=== PATIENT | female | born 1955 | race Caucasian/White ===

== ENCOUNTER 2020-01-06 10:23 | Outpatient (CLI) | payer BC, SELFPAY ==
--- NOTE | ~2020-01-06 | MM_ITS ---
EXAMINATION: MM screening sheryl BI w anuradha HISTORY: Screening TECHNIQUE: Craniocaudal and mediolateral oblique 3-D tomosynthesis images were obtained and synthetic 2-D images were generated. CAD analysis was submitted and interpreted. COMPARISON: Comparison to multiple prior studies sequentially, with oldest reviewed study dated 10/30. BREAST PARENCHYMAL COMPOSITION: There are scattered areas of fibroglandular density. FINDINGS: There are benign-appearing bilateral breast calcifications, some of which appear to layer o n the MLO view. There is no evidence of suspicious mass, calcification, or architectural distortion t o suggest malignancy in either breast. There has been no suspicious interval change. IMPRESSION: 1. No mammographic evidence of malignancy. 2. Recommend routine screening mammography in one year. BI-RADS Category 2: Benign finding(s). Reviewed, dictated and finalized at location A.
== END 2020-01-06 10:24 | disposition home or self-care (01) ==
LOC: ANHIMG 10:27
PROVIDERS: PCP Family Medicine; Visit Provider Physician Assistant
DX: Z12.31 Encounter for screening mammogram for malignant neoplasm of breast (principal)
CPT/HCPCS: 77063; 77067

== ENCOUNTER 2020-02-06 11:40 | Emergency (ER) | payer BC, SELFPAY ==
[2020-02-06 11:49] VITALS: BP 167/83; PULSE 68; RESP 20; TEMP 36.4; O2SAT 99
--- NOTE | 2020-02-06 11:49 | ED.UPPEXIN ---
HPI - Extremity Injury (Upper) General Chief Complaint: Extremity Problem,Nontraumatic Stated Complaint: R/shoulder pain Time Seen by Provider: 02/06/20 11:49 Source: patient and RN notes reviewed History of Present Illness HPI narrative: Patient is a 64-year-old female who presents the urgent care with complaints of a right shoulder pain. Patient is right-hand dominant. States that she was shoveling dirt approximately 1 hour ago and noticed a pop to the right shoulder. Patient states that after she went inside she felt a second pop which decreased her pain. However patient is reporting of right anterior shoulder burning with some tingling down the arm. Patient states that it is exacerbated with movement. Patient has not taken anything for pain prior to arrival. No other acute complaints or injuries. No acute distress noted. Patient aware of the plan of care. Related Data Allergies Allergy/AdvReac Type Severity Reaction Status Date / Time aspirin Allergy Unknown Skin Verified 01/02/20 14:48 Reaction neomycin Allergy Unknown Skin Verified 01/02/20 14:48 Reaction Sulfa (Sulfonamide Allergy Unknown Skin Verified 01/02/20 14:48 Antibiotics) Reaction sulfamethizole Allergy Unknown Skin Verified 01/02/20 14:48 Reaction valacyclovir Allergy Unknown pruiritis Verified 01/02/20 14:48 Review of Systems Review of Systems: Narrative: CONSTITUTIONAL: Denies fever, chills, or sweats. EYES: Denies visual changes, redness, or discharge. ENT: Denies rhinorrhea, congestion, sore throat, or otalgia. CARDIOVASCULAR: Denies chest pain, palpitations, or edema. RESPIRATORY: Denies cough or dyspnea. GASTROINTESTINAL: Denies abdominal pain, nausea, vomiting, or diarrhea. GENITOURINARY: Denies dysuria or hematuria. SKIN: Denies rash or itching. MUSCULOSKELETAL: Reports of right shoulder pain NEUROLOGIC: Denies headache, numbness, or weakness. All other systems reviewed are negative, except as documented in HPI. [facility], [facility] Social History Social History (Reviewed 01/02/20 @ 14:48 by Inna Ellison [facility] [address]) Smoking status: Never smoker Alcohol intake: current Gender identity (if verbalized by the patient): Female Comments At the time of my signature, I reviewed and agree with the nursing past medical, surgical, social, and family history. There is no relevant family history pertinent to the patient complaint. Exam Narrative: Exam Narrative: GENERAL: This is a well-nourished, well-developed patient, in no apparent distress. HEAD: normocephalic, atraumatic. EYES: PERRL. Sclera clear/white. Vision is grossly intact. EARS: External ears normal NOSE: External nose normal with no obvious nasal discharge, nares without redness, no rhinorrhea. THROAT: Mucous membranes moist SKIN: warm, intact with no suspicious lesions or rash, good texture and turgor. NEURO: awake, alert, and oriented to person, place and time. There were no obvious focal neurologic abnormalities. EXTREMITIES: No obvious dislocation, ecchymosis, edema or injury to the right shoulder. Mild anterior joint space tenderness to the right shoulder. No step-off or crepitus to the right clavicle. No posterior shoulder tenderness. Range of motion to right upper extremity within normal limits with positive strong right radial pulse and capillary refill less than 2 seconds. Course Vital Signs Vital signs: Vital Signs Temperature 97.6 F 02/06/20 11:49 Pulse Rate 68 02/06/20 11:49 Respiratory Rate 02/06/20 11:49 Blood Pressure 167/83 H 02/06/20 11:49 Pulse Oximetry 99 02/06/20 11:49 Temperature 97.6 F 02/06/20 11:49 Pulse Rate 68 02/06/20 11:49 Respiratory Rate 02/06/20 11:49 Blood Pressure 167/83 H 02/06/20 11:49 Pulse Oximetry 99 02/06/20 11:49 Reviewed-patient is informed that they may have pre-hypertension or hypertension based on a blood pressure reading in the department. I [facility] the [facility]
== END 2020-02-06 12:10 | disposition home or self-care (01) ==
PROVIDERS: Emergency Provider Nurse Practitioner Family; PCP Family Medicine
DX: S46.911A Strain of unspecified muscle, fascia and tendon at shoulder and upper arm level, right arm, initial encounter (principal); X50.3XXA Overexertion from repetitive movements, initial encounter; E78.00 Pure hypercholesterolemia, unspecified; I10 Essential (primary) hypertension
CPT/HCPCS: 99213; G0463

== ENCOUNTER → 2021-05-18 08:49 | Outpatient (CLI) | payer BC, SELFPAY ==
--- NOTE | ~2021-05-18 | XR_ITS ---
EXAMINATION: XR ankle RT min 3V DATE: 05/18/2021 09:03 INDICATION: Right ankle pain. TECHNIQUE: 4 views of right ankle were obtained. COMPARISON: None. FINDINGS: Bone alignment is normal. No fracture. There is an osteochondral lesion of medial talar dom e. There is mild midfoot osteoarthritis. There is heterotopic ossification distal to medial malleolus . There are enthesophytes at the posterior and plantar aspects of calcaneal tuberosity. There is ankl e soft tissue swelling. IMPRESSION: 1. 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 Reviewed, dictated and finalized at location A. 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 Polyarticular osteoarthritis including an osteochondral lesion of medial edward ar dome.
== END ==
PROVIDERS: PCP Family Medicine; Visit Provider Physician Assistant
DX: M19.071 Primary osteoarthritis, right ankle and foot (principal); M79.89 Other specified soft tissue disorders; M77.51 Other enthesopathy of right foot and ankle
CPT/HCPCS: 73610

== ENCOUNTER 2021-07-02 12:05 | Emergency (ER) | payer BC, SELFPAY ==
--- NOTE | ~2021-07-02 | US_ITS ---
EXAMINATION: US abdomen limited DATE: 07/02/2021 15:56 INDICATION: Right upper quadrant abdominal pain. TECHNIQUE: Multiple grayscale and Doppler ultrasound images of the abdomen were obtained. COMPARISON: CT abdomen and pelvis 07/02/2021 FINDINGS: The visualized portions of the head and body of the pancreas are normal. There is diffuse h epatic steatosis. No liver surface nodularity. The gallbladder is normal in size. No gallstones or ga llbladder wall thickening. There was no sonographic Petersen sign. The common duct is normal and measur es 4 mm. IMPRESSION: 1. Diffuse hepatic steatosis. Reviewed, dictated and finalized at location A. SCAPE ARCHITECTURE PROFESSOR
--- NOTE | ~2021-07-02 | CT_ITS ---
EXAMINATION: CT abdomen pelvis w con EXAM DATE: 07/02/2021 15:17 INDICATION: RUQ abd pain . Back pain. Symptoms 2 days. TECHNIQUE: Spiral CT of the abdomen and pelvis was performed following intravenous injection of 100 m L Omnipaque 350. Axial, coronal and sagittal images of the abdomen and pelvis were reviewed. The do se-length product (DLP) for this examination was 939.41 mGy-cm. The exposure was tailored according to patient size (auto mA exposure control), and iterative reconstruction (ASIR) was used as additiona l dose reduction technique. Comparison is made to prior examination from 08/03/2012. FINDINGS: The liver, spleen, adrenal glands and pancreas are unremarkable. Gallbladder is unremarkab le. No biliary obstruction. Portal and splenic veins are patent. Kidneys enhance symmetrically. T here is no hydronephrosis. The uterus is unremarkable. The bladder is unremarkable. There is no retroperitoneal or pelvic lymphadenopathy. There is mild scattered arteriosclerotic disease. There are no findings to suggest appendicitis. The stomach and small bowel are unremarkable. There is expected amount of colonic stool. There is mild scattered colonic diverticulosis. There is no adj acent inflammatory change to suggest diverticulitis. No free intraperitoneal gas. The heart is nor mal in size. There are no pericardial or pleural effusions. The lung bases are unremarkable. The b ones are unremarkable. IMPRESSION: 1. No acute intra-abdominal findings. 2. Mild scattered colonic diverticulosis. Reviewed, dictated and finalized at location A. LAND FIRE OPERATIONS SPECIALIST
[2021-07-02 12:08] VITALS: BP 138/94; PULSE 79; RESP 18; TEMP 36.5; O2SAT 98
[2021-07-02 14:40] LABS: Basophils Absolute Auto 0.1 K/mm3 (0.0-0.1); Basophils Percent Auto 1.2 % (0.2-1.2); Eosinophils Absolute Auto 0.4 K/mm3 (0-0.3); Eosinophils Percent Auto 4.7 % (0-4.4); Hematocrit 44.5 % (37.0-47.0); Hemoglobin 15.1 g/dL (12.0-15.0); Immature Granulocyte Absolute 0.04 K/mm3 (0.00-0.031); Immature Granulocyte Percent A 0.5 % (0-0.5); Lymphocytes Absolute Auto 2.67 K/mm3 (0.9-3.2); Lymphocytes Percent Auto 31.6 % (18.3-44.2); Mean Corpuscular HGB Conc 33.9 g/dl (32-36); Mean Corpuscular Hemoglobin 30.7 pg (26-34); Mean Corpuscular Volume 90.4 fl (80-100); Mean Platelet Volume 9.4 fl (7.4-10.4); Monocytes Absolute Auto 0.5 K/mm3 (0.1-0.6); Neutrophils Absolute Auto 4.7 K/mm3 (1.3-6.7); Platelet Count Result 331 k/mm3 (150-375); Red Blood Count 4.92 M/mm3 (4.2-5.4); Red Cell Distribution Width 13.4 % (11.5-14.5); White Blood Count 8.5 K/mm3 (4.5-10.0)
[2021-07-02 14:41] LABS: Add Urine Microscopic? NO; Appearance Urine Clear (Clear); Bilirubin Urine Negative (Negative); Blood Urine Negative (Negative); Color Urine Straw (Yellow); Glucose Urine UA Negative (Negative); Ketones Urine Negative (Negative); Leukocyte Esterase Ur Negative LEU/UL (Negative); Nitrate Urine Negative (Negative); Protein Urine Negative (Negative); Specific Grav Ur 1.012 (1.001-1.035); Urobilinogen Urine Negative mg/dL (<2.0)
[2021-07-02 14:54] LABS: Alanine Aminotransferase 28 U/L (4-35); Albumin Level 4.7 g/dL (3.5-5.1); Alkaline Phosphatase 71 U/L (38-126); Anion Gap 7 mmol/L (8-16); Aspartate Amino Transferase 27 U/L (14-36); Bilirubin,Total 0.4 mg/dL (0.2-1.3); Blood Urea Nitrogen 22 mg/dL (7-17); Carbon Dioxide 29 mmol/L (22-30); Chloride 101 mmol/L (98-107); Estimated CRCL calculation 66 ml/min; Estimated Glomerular Filt Rate > 60; Glucose 105 mg/dL (65-110); Lipase 143 U/L (23-300); Potassium 3.8 mmol/L (3.4-5.0); Sodium 137 mmol/L (137-145)
--- NOTE | 2021-07-02 15:06 | PC.NURSE ---
Pt to CT at this time
--- NOTE | 2021-07-02 15:14 | ED.ABDPAIN ---
HPI - Abdominal Pain General Chief Complaint: Abdominal Pain Stated Complaint: abdominal pain Time Seen by Provider: 07/02/21 14:21 Source: patient Mode of arrival: ambulatory Limitations: no limitations History of Present Illness HPI narrative: This is a 66 year old female that presents to the ER for abdominal pain present over the last couple of days. Reports the pain is an achy constant pain. Denies fever, chest pain, shortness of breath, vomiting, or diarrhea. Related Data Allergies Allergy/AdvReac Type Severity Reaction Status Date / Time aspirin Allergy Unknown Skin Verified 05/17/21 13:30 Reaction neomycin Allergy Unknown Skin Verified 05/17/21 13:30 Reaction Sulfa (Sulfonamide Allergy Unknown Skin Verified 05/17/21 13:30 Antibiotics) Reaction sulfamethizole Allergy Unknown Skin Verified 05/17/21 13:30 Reaction valacyclovir Allergy Unknown pruiritis Verified 05/17/21 13:30 Review of Systems Review of Systems: CONSTITUTIONAL: Denies fever CARDIOVASCULAR: Denies chest pain, or edema. RESPIRATORY: Denies dyspnea. GASTROINTESTINAL: Reports abdominal pain. Denies nausea, vomiting, or diarrhea. GENITOURINARY: Denies dysuria or hematuria. All systems reviewed & are unremarkable except as noted in HPI and below PMFSH Past Medical History Medical History (Updated 07/02/21 @ 16:30 by Leila Portillo PA-C) HTN (hypertension) Hyperlipidemia Restless leg syndrome Seasonal allergies Spinal stenosis Surgical History Surgical History History of shoulder surgery right Hx of appendectomy Family History Family History Mother Diabetes mellitus Hypertension Family history of elevated blood lipids Acute myocardial infarction Cerebrovascular accident, Onset Age: 64 Family history of kidney disease Father Cerebrovascular accident Malignant neoplasm of prostate Grandparent Family history of kidney disease Other Family history of malignant neoplasm Social History Social History (Updated 05/17/21 @ 13:31 by Liat Arriola CMA) Second hand tobacco smoke exposure: No Alcohol intake: current Gender identity (if verbalized by the patient): Female Exam Narrative: GENERAL: Well-appearing, well-nourished, and in no acute distress. HEAD: Normocephalic, atraumatic. EYES: EOMI. CHEST: Clear to auscultation. No respiratory distress. No wheezes rales or rhonchi HEART: Regular rate and rhythm. No murmur heard. Normal peripheral pulses. ABDOMEN: Soft, nondistended, normal active bowel sounds. Tender to palpation in the right upper quadrant, without guarding. No CVA tenderness EXTREMITIES: Normal range of motion. No edema. SKIN: Warm, dry, no rash. NEURO: No focal deficits. Alert and oriented x3. PSYCH: Normal mood and affect Course Vital Signs Vital signs: Vital Signs Temperature 97.7 F 07/02/21 12:08 Pulse Rate 79 07/02/21 12:08 Respiratory Rate 18 07/02/21 12:08 Blood Pressure 138/94 H 07/02/21 12:08 Pulse Oximetry 98 07/02/21 12:08 Temperature 97.7 F 07/02/21 12:08 Pulse Rate 79 07/02/21 12:08 Respiratory Rate 18 07/02/21 12:08 Blood Pressure 138/94 H 07/02/21 12:08 Pulse Oximetry 98 07/02/21 12:08 MDM - Abdominal Pain MDM Narrative Medical decision making narrative: Patient presents to the emergency department for right upper quadrant abdominal pain ongoing over the last couple of days. She is afebrile and nontoxic-appearing. CBC and metabolic panel without concerning findings. Lipase is normal. UA without evidence of infection. CT scan of the abdomen and pelvis is without acute findings. Right upper quadrant ultrasound is also without acute findings. Patient was updated on case findings. She is stable and felt appropriate for further outpatient evaluation. Instructed to have close follow-up with her primary
[2021-07-02] MEDS: ONDANSETRON INJ 4 MG/2 ML VIAL IV PUSH (15:23)
[2021-07-02 16:53] VITALS: BP 131/83; PULSE 67; RESP 18; O2SAT 99
== END 2021-07-02 16:55 | disposition home or self-care (01) ==
PROVIDERS: Emergency Medicine; Emergency Provider Emergency Medicine; PCP Family Medicine
DX: R10.11 Right upper quadrant pain (principal); E78.5 Hyperlipidemia, unspecified; I10 Essential (primary) hypertension; G25.81 Restless legs syndrome; K57.90 Diverticulosis of intestine, part unspecified, without perforation or abscess without bleeding; K76.0 Fatty (change of) liver, not elsewhere classified
CPT/HCPCS: 36415; 74177; 76705; 80053; 81003; 83690; 85025; 96374; 96375; 99284; J0131; J2405; Q9967

== ENCOUNTER → 2021-10-07 11:19 | Outpatient (CLI) | payer BC, SELFPAY ==
--- NOTE | ~2021-10-07 | XR_ITS ---
XR chest 2V DATE: 10/07/2021 12:26 INDICATION: Cough TECHNIQUE: 2 views COMPARISON: 04/20/2019 2 view chest FINDINGS: Normal heart size. No hilar or mediastinal enlargement. No pulmonary infiltrate or consolidation, pleural effusion or pulmonary vascular congestion or pneumo thorax. Osteopenia. Levoscoliosis of the lumbar spine and degenerative change of thoracic and lumbar spine. IMPRESSION: No active cardiopulmonary disease Reviewed, dictated and finalized at location A.
== END ==
PROVIDERS: PCP Family Medicine; Visit Provider Physician Assistant
DX: R05.9 Cough, unspecified (principal)
CPT/HCPCS: 71046

== ENCOUNTER 2022-07-31 08:00 | Emergency (ER) | payer MEDICARE, SELFPAY ==
--- NOTE | 2022-07-31 08:14 | ED.GENADULT ---
HPI - General Adult General Chief complaint: Ear Stated complaint: SORE THROAT/EARACHE Time Seen by Provider: 07/31/22 08:17 Source: patient, RN notes reviewed and old records reviewed Mode of arrival: ambulatory Limitations: no limitations History of Present Illness HPI narrative: 67 year old female who [facility] with complaints of bilateral ear pain and sore throat with cough which started on .Patient reports that she has had some sinus drainage,headache and also sinus pressure to her face. She states that she has had low grade fevers with highest of 100F/ She has been taking Sudafed, Coricidin, Mucinex, and Raina [place] day and night cold medication. Patient denies any exposure to ill contacts. MD complaint: sore throat and earache bilateral and cough Onset (ago): day(s) (4) Severity scale (1-10): 8 Treatments prior to arrival: other (sudafed,coricidin,Mucinex, Raina [place] day and night cold medication.) Related Data Home Medications Medication Instructions Recorded Confirmed semaglutide 1 mg/dose (2 mg/1.5 1 mg subcut WEEKLY 08/16/21 07/31/22 mL) subcutaneous pen injector Allergies Allergy/AdvReac Type Severity Reaction Status Date / Time aspirin Allergy Unknown Skin Verified 07/31/22 08:11 Reaction neomycin Allergy Unknown Skin Verified 07/31/22 08:11 Reaction Sulfa (Sulfonamide Allergy Unknown Skin Verified 07/31/22 08:11 Antibiotics) Reaction sulfamethizole Allergy Unknown Skin Verified 07/31/22 08:11 Reaction valacyclovir Allergy Unknown pruiritis Verified 07/31/22 08:11 Review of Systems Review of Systems: CONSTITUTIONAL: Reports malaise, chills, sweats, or fever. EYES: Denies visual changes, redness, or discharge. ENT: Reports rhinorrhea, congestion, sinus pain, otalgia and sore throat. CARDIOVASCULAR: Denies chest pain, palpitations, or edema. RESPIRATORY: Reports cough.? Denies dyspnea. GASTROINTESTINAL: Denies abdominal pain, nausea, vomiting, diarrhea SKIN: Denies rash or itching. MUSCULOSKELETAL: Denies myalgia. NEUROLOGIC: reports headache. All systems reviewed & are unremarkable except as noted in HPI and below PMFSH Past Medical History Medical History (Updated 07/31/22 @ 08:35 by Jessica Lee NP) HTN (hypertension) Hyperlipidemia Restless leg syndrome Seasonal allergies Spinal stenosis Surgical History Surgical History (Updated 07/31/22 @ 08:29 by Jessica Lee NP) History of carpal tunnel release of both wrists History of right knee joint replacement History of shoulder surgery right Hx of appendectomy Family History Family History Mother Diabetes mellitus Hypertension Family history of elevated blood lipids Acute myocardial infarction Cerebrovascular accident, Onset Age: 64 Family history of kidney disease Father Cerebrovascular accident Malignant neoplasm of prostate Grandparent Family history of kidney disease Other Family history of malignant neoplasm Social History Social History Social History: Caffeine-soda Smoking status: Never smoker Second hand tobacco smoke exposure: No Alcohol intake: current Alcohol use details: Occasional Substance use type: does not use Lack of Transportation: No Lack of Food: Never True Current Housing: I Have Housing Concerned About Future Housing: No Difficulty Paying Gas/Electric Bills: No Difficulty Paying for Meds: No Currently Unemployed: No Education: Trade/Vocational Certificate Difficulty w/ Childcare or Family Care: No Gender identity (if verbalized by the patient): Female Comments At time of signature, agree with nursing past medical, surgical, social and family history. There is no relevant family history pertinent to the presenting complaint Exam Narrative: GENERAL: Well-karin
[2022-07-31 08:16] VITALS: BP 170/99; PULSE 79; RESP 16; TEMP 36.1; O2SAT 98
== END 2022-07-31 08:39 | disposition home or self-care (01) ==
PROVIDERS: Emergency Provider Registered Nurse; PCP Emergency Medicine
DX: J32.9 Chronic sinusitis, unspecified (principal); H92.03 Otalgia, bilateral; J02.9 Acute pharyngitis, unspecified; I10 Essential (primary) hypertension; E78.5 Hyperlipidemia, unspecified; G25.81 Restless legs syndrome; M48.00 Spinal stenosis, site unspecified; Z96.651 Presence of right artificial knee joint
CPT/HCPCS: 87081; 87880; 99213; G0463

== ENCOUNTER → 2022-11-03 11:44 | Outpatient (CLI) | payer MEDICARE, SELFPAY ==
--- NOTE | ~2022-11-03 | XR_ITS ---
Left Knee Technique: AP, lateral, and sunrise views were obtained. Clinical History: Pain Findings: No fracture or dislocation is seen. There is medial compartment narrowing with medial joint line osteophyte formation. There is mild patellar spurring. Soft tissues are unremarkable. No joint effusion is seen. Impression: There are degenerative change of the medial compartment. Mild degenerative change of the patellofemoral compartment. Reviewed, dictated and finalized at location M. Impression: There are degenerative change of the medial compartment. Mild degenerative change of the patellofemoral compartment.
== END ==
PROVIDERS: PCP Physician Assistant; Visit Provider Physician Assistant
DX: M25.562 Pain in left knee (principal)
CPT/HCPCS: 73562

== ENCOUNTER 2022-11-17 08:38 | Outpatient (CLI) | payer MEDICARE, SELFPAY ==
[2022-11-18 08:59] LABS: Kit Draw Collected
== END 2022-11-17 08:39 | disposition home or self-care (01) ==
LOC: ANHGOSHLAB 08:40
PROVIDERS: PCP Physician Assistant; Visit Provider Emergency Medicine
DX: E11.69 Type 2 diabetes mellitus with other specified complication (principal); E78.00 Pure hypercholesterolemia, unspecified; F32.9 Major depressive disorder, single episode, unspecified
CPT/HCPCS: 36415

== ENCOUNTER 2023-05-10 08:07 | Outpatient (CLI) | payer MEDICARE, SELFPAY ==
[2023-05-10 12:47] LABS: Alanine Aminotransferase 21 U/L (6-35); Albumin Level 3.9 g/dL (3.5-5.1); Alkaline Phosphatase 66 U/L (38-126); Anion Gap 6 mmol/L (8-16); Aspartate Amino Transferase 49 U/L (14-36); Bilirubin,Total 0.5 mg/dL (0.2-1.3); Blood Urea Nitrogen 24 mg/dL (7-17); Calcium 9.2 mg/dL (8.4-10.2); Carbon Dioxide 30 mmol/L (22-30); Chloride 102 mmol/L (98-107); Cholesterol 207 mg/dL (0-200); Estimated Glomerular Filt Rate > 60; Glucose 77 mg/dL (65-110); HDL Direct 44 mg/dL; Potassium 3.7 mmol/L (3.4-5.0); Sodium 138 mmol/L (137-145); Triglycerides 145 mg/dL (<150)
[2023-05-10 12:58] LABS: LDL Cholesterol Direct 114 mg/dL
[2023-05-10 15:46] LABS: Hemoglobin A1C 5.4 % (<5.7)
== END 2023-05-10 08:08 | disposition home or self-care (01) ==
PROVIDERS: PCP Physician Assistant; Visit Provider Emergency Medicine
DX: E78.00 Pure hypercholesterolemia, unspecified (principal); E11.69 Type 2 diabetes mellitus with other specified complication
CPT/HCPCS: 36415; 80053; 80061; 83036

== ENCOUNTER 2023-08-03 12:05 | Outpatient (CLI) | payer MEDICARE, SELFPAY ==
--- NOTE | ~2023-08-03 | XR_ITS ---
EXAMINATION: XR knee LT 3V DATE: 08/03/2023 14:42 INDICATION: Unilateral primary osteoarthritis, left knee. TECHNIQUE: 3 views of left knee including standing views were obtained. COMPARISON: Left knee radiographs 11/03/2022 FINDINGS: Bone alignment is normal. No fracture. There is moderate osteoarthritis of medial and coleman lofemoral compartments and mild osteoarthritis of lateral compartment. No knee joint effusion. IMPRESSION: 1. Moderate left knee osteoarthritis. Reviewed, dictated and finalized at location A. US WELLNESS COORDINATOR
== END 2023-08-03 12:06 | disposition home or self-care (01) ==
PROVIDERS: PCP Emergency Medicine; Visit Provider Orthopaedic Surgery
DX: M17.12 Unilateral primary osteoarthritis, left knee (principal)
CPT/HCPCS: 73562

== ENCOUNTER 2024-01-03 10:09 | Outpatient (CLI) | payer MEDICARE, SELFPAY ==
[2024-01-03 10:33] LABS: Hematocrit 45.2 % (37.0-47.0); Hemoglobin 14.8 g/dL (12.0-15.0)
--- NOTE | 2024-01-03 10:34 | ECG_ITS ---
Test Date: 2024-01-03 10:39:01 Measurements Intervals [place] Rate: 63 P: 28 [place]: 183 QRS: -18 QRSD: 125 T: -7 QT: 407 QTc: 418 Interpretive Statements SINUS RHYTHM INTRAVENTRICULAR CONDUCTION DELAY DELAYED PRECORDIAL R/S TRANSITION VOLTAGE CRITERIA FOR LVH BORDERLINE ST-T WAVE ABNORMALITY- INFERIOR LEADS BORDERLINE ECG No previous ECG available for comparison Electronically Signed On 01-03-2024 12:09:36 CDT by Deni Hand D.O.
[2024-01-03 10:42] LABS: Albumin Level 4.5 g/dL (3.5-5.1); Estimated Glomerular Filt Rate > 60; Glucose 100 mg/dL (65-110)
[2024-01-03 10:43] LABS: Hemoglobin A1C 6.1 % (<5.7)
== END 2024-01-03 10:10 | disposition home or self-care (01) ==
LOC: ANHLAB 10:13
PROVIDERS: PCP Nurse Practitioner Family; Visit Provider Orthopaedic Surgery
DX: Z01.818 Encounter for other preprocedural examination (principal); M17.12 Unilateral primary osteoarthritis, left knee; I10 Essential (primary) hypertension; E11.69 Type 2 diabetes mellitus with other specified complication; K76.0 Fatty (change of) liver, not elsewhere classified
CPT/HCPCS: 36415; 82040; 82565; 82947; 83036; 85014; 85018; 93005

== ENCOUNTER 2024-02-16 09:49 | Outpatient (CLI) | payer MEDICARE, SELFPAY ==
[2024-02-16 13:02] LABS: Basophils Absolute Auto 0.1 K/mm3 (0.0-0.1); Basophils Percent Auto 1.4 % (0.2-1.2); Eosinophils Absolute Auto 0.3 K/mm3 (0-0.3); Hematocrit 42.3 % (37.0-47.0); Hemoglobin 13.9 g/dL (12.0-15.0); Immature Granulocyte Absolute 0.02 K/mm3 (0.00-0.031); Immature Granulocyte Percent A 0.3 % (0-0.5); Lymphocytes Absolute Auto 1.97 K/mm3 (0.9-3.2); Lymphocytes Percent Auto 29.8 % (18.3-44.2); Mean Corpuscular HGB Conc 32.9 g/dl (32-36); Mean Corpuscular Hemoglobin 31.3 pg (26-34); Mean Corpuscular Volume 95.3 fl (80-100); Mean Platelet Volume 11.4 fl (7.4-10.4); Monocytes Absolute Auto 0.6 K/mm3 (0.1-0.6); Monocytes Percent Auto 8.5 % (2.6-8.5); Neutrophils Absolute Auto 3.6 K/mm3 (1.3-6.7); Platelet Count Result 302 k/mm3 (150-375); Red Blood Count 4.44 M/mm3 (4.2-5.4); Red Cell Distribution Width 13.8 % (11.5-14.5); White Blood Count 6.6 K/mm3 (4.5-10.0)
[2024-02-16 13:11] LABS: Albumin Level 4.4 g/dL (3.5-5.1)
[2024-02-16 13:15] LABS: Anion Gap 8 mmol/L (4-12); Blood Urea Nitrogen 23 mg/dL (7-17); Calcium 9.7 mg/dL (8.4-10.2); Carbon Dioxide 29 mmol/L (22-30); Chloride 102 mmol/L (98-107); Estimated Glomerular Filt Rate > 60; Glucose 82 mg/dL (65-110); Potassium 3.7 mmol/L (3.4-5.0); Sodium 139 mmol/L (137-145)
[2024-02-16 13:17] LABS: Urine Cotinine NEGATIVE
[2024-02-16 14:16] LABS: MRSA (PCR) NOT DETECTED (NOT DETECTE)
== END 2024-02-16 09:50 | disposition home or self-care (01) ==
LOC: ANHSURGERY 09:56
PROVIDERS: Anesthesiology; PCP Nurse Practitioner Family; Visit Provider Orthopaedic Surgery
DX: Z01.812 Encounter for preprocedural laboratory examination (principal); M17.12 Unilateral primary osteoarthritis, left knee; E11.9 Type 2 diabetes mellitus without complications
CPT/HCPCS: 36415; 80048; 80307; 82040; 85025; 87641

== ENCOUNTER 2024-03-11 00:24 | Day surgery (SDC) | payer MEDICARE, SELFPAY ==
--- NOTE | 2024-02-16 09:57 | PC.NURSE ---
Report to the Outpatient Waiting Room, entrance under the green pavilion located off [facility], at time _10:00AM_ on date _03/11/24_. Planned Procedure Time: _12:00PM_.? Time changes happen often and if your time is changed the preop area will call you the afternoon before. - You and your visitor will be asked to self-screen and do not enter if you have any COVID symptoms. Please call surgeon if you need to reschedule. - A mask is optional within the hospital at this time. Patients may have clear liquids (water, carbonated beverages, clear teas, apple juice) until 3 hours prior to surgery with a maximum of 20 ounces. - No food from midnight until time of surgery and no smoking. Take only the following medications with a SIP of water on the morning of surgery: ____NONE DO NOT STOP ANY OF YOUR OTHER PRESCRIPTION MEDICATIONS PRIOR TO SURGERY EXCEPT THE FOLLOWING Medications to discontinue per physician ___HOLD ALL NSAIDS(NAPROXEN) 7 DAYS PRE-OP PER DR GRAHAM- LAST DOSE 03/03/24. HOLD ALL VITAMINS/SUPPLEMENTS 3 DAYS PRE-OP PER ANESTHESIA- LAST DOSE 03/07/24 Please no make-up, nail danish, hairspray, perfume, deodorant, or body powder the day of surgery.? No jewelry (including any body piercings) or valuables the day of surgery, leave them at home.? Please take a shower or bath the night before, or the morning of, surgery with an antibacterial soap.? Wear comfortable, loose fitting clothing.? - Jewelry must be removed prior to entering the operating room.? Rings and piercings that are not removed may be cut off. - The hospital will not accept responsibility for valuables.? - Please leave all valuables, including medications, at home the day of surgery. If you are going home after surgery, a licensed moving van driver must drive you home.? - NO public transportation without another adult if you receive anesthesia. - We recommend that an adult stay with you for 24 hours following discharge. - We also recommend that you do not drive, make important decision, drink alcoholic beverages, or take any drugs that were not prescribed by your health care provider for at least 24 hours after your discharge time. Follow any additional instructions given to you from your surgeon. DR GRAHAM INSTRUCTED PATIENT TO SHOWER WITH DIAL SOAP PRIOR TO SURGERY INSTEAD OF HIBICLENS. Telephone instructions given to ____PATIENT and asked if any additional questions and then verbalized understanding. Patient advised to call surgeon office or pre surgery nurse liaison [phone] if any additional questions.
[2024-02-16 10:22] VITALS: BP 162/82; PULSE 55; RESP 16; TEMP 36.2; O2SAT 100; BMI 38.7
[2024-03-11] VITALS (12 sets, daily range): BP systolic 123–166; BP diastolic 64–86; PULSE 61–74; RESP 14–20; TEMP 36.2–36.6; O2SAT 93–100
--- NOTE | ~2024-03-11 | XR_ITS ---
[id number] Ordering provider: Darell Flores MD History: . POST-OP, LEFT TKA . Comparison: None. FINDINGS: BONES: No acute fracture or dislocation. JOINT SPACES: Total knee arthroplasty. SOFT TISSUES: Postoperative changes with air seen in the soft tissues. IMPRESSION: No acute osseous abnormality left knee. Total knee arthroplasty. Reviewed, dictated and finalized at location A.
--- NOTE | 2024-03-11 08:30 | PHAR ---
ALLERGY TO NEOMYCIN (REDNESS ON SKIN). TALKED TO ORLY IN OR ABOUT POSSIBLE REACTION TO GENTAMYCIN BONE CEMENT & THAT DR GRAHAM WAS AWARE OF THE ALLERGY BEFORE USING GENT BONE CEMENT.
[2024-03-11] MEDS: ACETAMINOPHEN 500 MG TABLET 1000 MG PO (10:22)
--- NOTE | 2024-03-11 10:44 | WPDANESEPPF ---
Anes - Initial Pre Proc Eval Procedure: Operation Date: 03/11/24 12:00 Proposed Procedures p Left Total Knee Arthroplasty - Darell Flores MD Date/Time: 03/11/24 10:44 Surgeon: Darell Flores MD Pre Op Diagnosis: Prim O A Lt Knee Patient Data Age: 68 Gender: F Height: 1.55 m Weight: 93.1 kg Last Vital Signs Temp 36.2 C L 02/16/24 10:22 Pulse 55 L 02/16/24 10:22 Resp 16 02/16/24 10:22 BP 162/82 H 02/16/24 10:22 Pulse Ox 100 02/16/24 10:22 O2 Del Method Room Air 02/16/24 10:22 Allergies Allergy/AdvReac Type Severity Reaction Status Date / Time chlorhexidine Allergy Intermediate Rash, Verified 03/11/24 10:15 [From Hibiclens] REDNESS OF SKIN, ITCHING neomycin Allergy Unknown Skin Verified 03/11/24 10:15 Reaction, REDNESS AT SKIN Sulfa (Sulfonamide Allergy Unknown Itching, Verified 03/11/24 10:15 Antibiotics) RASH Cdudimd-FRD-[id number] Reductase AdvReac MUSCLE & Verified 03/11/24 10:15 Inhibitor JOINT PAIN Home Medications Medication Instructions Recorded Confirmed Type lisinopril 40 mg tablet 40 mg PO DAILY #90 tabs 05/11/23 02/16/24 Rx ropinirole 0.5 mg tablet 2.5 mg PO HS #450 tabs 05/11/23 02/16/24 Rx hydrochlorothiazide 25 mg tablet 25 mg PO DAILY #90 tabs 01/01/24 02/16/24 Rx sertraline 25 mg tablet (Zoloft) 25 mg PO DAILY #90 tabs 01/24/24 02/16/24 Rx acetaminophen 500 mg tablet 1,000 mg PO Q6H PRN Pain 02/16/24 02/16/24 History ascorbic acid (vitamin C) 500 mg 1,000 mg PO DAILY 02/16/24 02/16/24 History capsule cholecalciferol (vitamin D3) 50 50 mcg PO DAILY 02/16/24 02/16/24 History mcg (2,000 unit) capsule cinnamon bark 500 mg capsule 2,000 mg PO DAILY 02/16/24 02/16/24 History (Cinnamon) fexofenadine 180 mg tablet 180 mg PO HS PRN Sinus Symptoms 02/16/24 02/16/24 History magnesium 200 mg tablet 400 mg PO DAILY 02/16/24 02/16/24 History multivitamin 1 tablet PO DAILY 02/16/24 02/16/24 History naproxen sodium 220 mg capsule 440 mg PO BID PRN Pain 02/16/24 02/16/24 History (Aleve) potassium 99 mg tablet 198 mg PO QAM 02/16/24 02/16/24 History Patient hx anesthesia problems: none Family hx anesthesia problems: none Results Review: All pre-operative results and documents have been reviewed as part of the pre-operative evaluation. [facility] Past Medical History Medical History Enthesopathy of hip region Generalized osteoarthrosis, unspecified site HTN (hypertension) Hyperlipidemia Menopausal state Other spondylosis, lumbar region Restless leg syndrome Seasonal allergies Spinal stenosis Surgical History Surgical History History of carpal tunnel surgery (~1990) right wrist History of carpal tunnel surgery (2016) left wrist History of right knee joint replacement (01/2015) History of shoulder surgery (05/2010) right Hx of appendectomy (09/2003) Family History Family History Mother Diabetes mellitus Hypertension Family history of elevated blood lipids Acute myocardial infarction Cerebrovascular accident, Onset Age: 64 Family history of kidney disease Heart disease Father Cerebrovascular accident Malignant neoplasm of prostate Grandparent Family history of kidney disease Other Family history of malignant neoplasm Social History Social History Social History: Caffeine-soda Smoking status: Never smoker Second hand tobacco smoke exposure: No Alcohol intake: current Drinks per week: 4 Substance use: never Substance use type: does not use Do You Feel Safe in your Home?: Yes Lack of Transportation: No Lack of Food: Never True Current Housing: I Have Housing Concerned About Future Housing: No Difficulty Paying Gas/Electric Bills: No Diff
[2024-03-11] MEDS: LACTATED RINGERS 1,000 ML 30 ML IV CONT ×2 (10:50→14:54)
[2024-03-11 10:53] LABS: Glucose Point of Care 88 mg/dl (65-105)
[2024-03-11] MEDS: TRANEXAMIC ACID 1,000MG/ISO100 1,000 MG/100 ML BAG 200 MG IVPB (11:16)
--- NOTE | 2024-03-11 11:54 | WPDHPUPDATE1 ---
History and Physical Update Update Date/Time: 03/11/24 11:54 History and Physical has been reviewed, including an updated exam of the patient. There are NO changes in the patient's condition. Risks, benefits, and alternatives have been discussed and questions answered. Patient agrees to proceed with procedure.
--- NOTE | 2024-03-11 12:10 | SUR.PREOP ---
1200- SPOKE WITH DR. GRAHAM ABOUT PT CHLORHEXIDINE ALLERGY. HE STATED TO DO A TEST ON A SMALL SPOT ON KNEE SINCE SHE WAS NOT SURE SHE HAD A TRUE ALLERGY. 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 PT ALSO AGREED. PREPPED IN PRE OP
[2024-03-11] MEDS: ceFAZolin 2 GM/D5W 50 ML 2 GM/50 ML BAG IVPB ×2 (12:11→20:17)
[2024-03-11] MEDS: SODIUM CHLORIDE 0.9% IV 37.7 ML, MORPHINE SULFATE INJ (*CRX) 2 MG, ROPivacaine HCL 1% 2... INFILTRATE (12:47)
[2024-03-11] MEDS: TRANEXAMIC ACID 1,000 MG/10 ML AMPUL 1000 MG IV PUSH (14:21)
[2024-03-11] MEDS: fentaNYL CITRATE INJ (*CRX) 100 MCG/2 ML VIAL 25 MCG IV PUSH ×6 (15:10→15:45)
[2024-03-11 15:14] LABS: Glucose Point of Care 106 mg/dl (65-105)
[2024-03-11] MEDS: diphenhydrAMINE HCl INJ 50 MG/ML VIAL 25 MG IV PUSH ×2 (15:23→20:12)
--- NOTE | 2024-03-11 15:43 | W.PM.PROC2 ---
Procedure Note - Detailed Date of Procedure 03/11/24 Pre-op Diagnosis Severe left knee arthritis. Post-op Diagnosis Same Procedure Performed Calipered, kinematically aligned total knee replacement left knee. Surgeon Darell Flores MD Sous Chef Kitchen Manager Cami Woods PA-C Anesthesia General Findings According to the calipered kinematic alignment principles, the knee was balanced by the following verification checks incorporating 6 caliper measurements, using an insert goniometer to select the insert thickness, and adjusting the tibial resection following the kinematic alignment algorithm (see figure 160.10 published in [employer] chapter on kinematic alignment total knee arthroplasty.) The steps verified the femoral and tibial components were kinematically aligned coincident to the patient's pre arthritic joint lines, which closely restored the squaxin tibial compartment forces and ligament laxities without ligament release. The [employer] knee, designed specifically for kinematic alignment, fit optimally. The record of verification checks were documented and scanned into the chart. Distal Femoral Resection: Distal Medial 6 mm(cartilage worn), Distal Lateral 8 mm Target thickness of 8mm Unworn, 6mm Worn (No Cartilage). Posterior Femoral Resection: Posterior Medial 5 mm(cartilage worn), Posterior Lateral 7 mm. Target thickness of 7mm Unworn, 5mm Worn (No Cartilage). Tibia varus preoperative 7 degrees; postoperative 7 degrees. Tibia slope preoperative 4 degrees; postoperative 4 degrees. Femoral valgus 9 degrees pre and post. Description of Procedure General anesthesia was administered. A well-padded tourniquet was placed high on the thigh. The limb was prepped and draped in the usual sterile fashion. The limb was exsanguinated and the tourniquet inflated to 300 mmHg. A longitudinal incision was created over the midline of the knee. Sharp dissection was taken through subcutaneous tissues. Electrocautery was used for hemostasis. A trivector approach to the knee joint was performed. The ACL, anterior horns of the menisci, and fat pad were excised, and a subperiosteal dissection was carried along the posterior medial border of the tibia. The thickness of the squaxin patella was measured with a caliper. The patella was resected using the oscillating saw. The best fitting anatomic patella button was selected. The fixation holes were drilled. When the patella and patella buttons combined thickness was thicker than the squaxin patella, the patella was recut. Starting midway between the top of the notch in the anterior femoral cortex, I drilled a 9 mm diameter hole parallel to the anterior cortex to minimize flexion of the femoral component and promote patella tracking. I verified the existence of a 5-10 mm bone bridge between the posterior aspect of the hole and the anterior limit of the intercondylar notch. An intraosseous positioning jose d was inserted 10 cm into the femur perpendicular to the distal joint line and parallel to the anterior cortex. I used a distal femoral referencing guide that compensated 2 mm when the cartilage was worn on the distal medial femoral condyle, and 2 mm when the cartilage was worn on the distal lateral femoral condyle. The basis for setting the distal and posterior femoral resection guide is knowing that the varus and valgus grade II to IV Kellegren-Triston osteoarthritic knees have negligible bone wear at 0? and 90? and that the mean full-thickness cartilage wear approximates 2 mm. I measured the thickness of distal femoral resections with a caliper to +/- 0.5 mm. The thickness of each resection was adjusted to match the thickness of the respective condyle of the femoral component within 0.5 mm of target after compensating for cartilage wear and kerf. When the distal resection was 1-2 mm too thin, a recut guide was used to adjust the cut. When the distal resection was too thick, a 1 or 2 mm thick washer was f
[2024-03-11] MEDS: SODIUM CHLORIDE 0.9% IV 1,000 ML 125 ML IV CONT (16:42)
[2024-03-11] MEDS: predniSONE 5 MG TABLET PO (16:42)
[2024-03-11] MEDS: SENNA/DOCUSATE SODIUM TABLET 2 TAB PO (16:42)
[2024-03-11] MEDS: MELOXICAM 7.5 MG TABLET PO (16:42)
--- NOTE | 2024-03-11 16:57 | ADMGEN ---
This patient, Alma Rhoades, was admitted to 3 Med Surg Room 314-01. Patient/family oriented to hospital policies and general routines including ID bracelet, bed and alarms, visiting hours, pain management, procedures, bathroom and other care routines, personal items, smoking policy, room service/diet, and visiting hours. Information on how to activate the Rapid Response Team has been discussed. Patient/Family are encouraged to report perceived risks to care and to ask questions if they do not understand what they are told or what they should do. Report from Kristi in PACU
[2024-03-11] MEDS: CYCLOBENZAPRINE HCL 10 MG TABLET PO (17:16)
[2024-03-11] MEDS: oxyCODONE/ACETAMINOPHEN (*CRX) 10-325 MG TABLET 1 TAB PO ×2 (17:16→23:14)
[2024-03-11] MEDS: LORATADINE 10 MG TABLET PO (18:14)
[2024-03-11] MEDS: rOPINIRole HCL 0.5 MG TABLET PO (20:47)
[2024-03-11] MEDS: rOPINIRole HCL 1 MG TABLET 2 MG PO (20:47)
[2024-03-11] MEDS: FAMOTIDINE 20 MG TABLET PO (20:47)
[2024-03-11] MEDS: ASPIRIN 81 MG ENTERIC TABLET PO (20:47)
[2024-03-11] MEDS: SERTRALINE HCL 25 MG TABLET PO (20:47)
[2024-03-11] MEDS: ACETAMINOPHEN 325 MG TABLET 650 MG PO (23:13)
[2024-03-12 01:49] VITALS: BP 129/63; PULSE 66; RESP 18; TEMP 36.2; O2SAT 94
[2024-03-12] MEDS: CYCLOBENZAPRINE HCL 10 MG TABLET PO ×2 (03:08→11:25)
[2024-03-12] MEDS: diphenhydrAMINE HCl INJ 50 MG/ML VIAL 25 MG IV PUSH (04:57)
[2024-03-12] MEDS: ceFAZolin 2 GM/D5W 50 ML 2 GM/50 ML BAG IVPB (04:57)
[2024-03-12] MEDS: oxyCODONE/ACETAMINOPHEN (*CRX) 10-325 MG TABLET 1 TAB PO ×2 (05:10→11:24)
[2024-03-12] MEDS: ACETAMINOPHEN 325 MG TABLET 650 MG PO ×2 (05:10→11:25)
[2024-03-12 05:49] VITALS: BP 138/69; PULSE 68; RESP 18; TEMP 36.1; O2SAT 100
[2024-03-12 08:00] LABS: Anion Gap 5 mmol/L (4-12); Blood Urea Nitrogen 19 mg/dL (7-17); Calcium 8.6 mg/dL (8.4-10.2); Carbon Dioxide 31 mmol/L (22-30); Chloride 100 mmol/L (98-107); Estimated CRCL calculation 55 ml/min; Estimated Glomerular Filt Rate > 60; Glucose 114 mg/dL (65-110); Potassium 4.1 mmol/L (3.4-5.0); Sodium 136 mmol/L (137-145)
[2024-03-12] MEDS: SENNA/DOCUSATE SODIUM TABLET 2 TAB PO (08:30)
[2024-03-12] MEDS: MELOXICAM 7.5 MG TABLET PO (08:30)
[2024-03-12] MEDS: hydroCHLOROthiazide 25 MG TABLET PO (08:30)
[2024-03-12] MEDS: ASPIRIN 81 MG ENTERIC TABLET PO (08:30)
[2024-03-12] MEDS: lisinopriL 20 MG TABLET 40 MG PO (08:30)
[2024-03-12] MEDS: traMADol HCL (*CRX) 50 MG TABLET PO (08:30)
[2024-03-12] MEDS: FAMOTIDINE 20 MG TABLET PO (08:30)
[2024-03-12] MEDS: polyethylene glycoL 3350 17 GM POWD.PACK PO (08:35)
[2024-03-12 08:36] LABS: Basophils Absolute Auto 0.1 K/mm3 (0.0-0.1); Basophils Percent Auto 0.5 % (0.2-1.2); Eosinophils Percent Auto 0.2 % (0-4.4); Hematocrit 36.7 % (37.0-47.0); Hemoglobin 11.9 g/dL (12.0-15.0); Immature Granulocyte Absolute 0.05 K/mm3 (0.00-0.031); Immature Granulocyte Percent A 0.4 % (0-0.5); Lymphocytes Absolute Auto 1.88 K/mm3 (0.9-3.2); Lymphocytes Percent Auto 15.3 % (18.3-44.2); Mean Corpuscular HGB Conc 32.4 g/dl (32-36); Mean Corpuscular Hemoglobin 31.4 pg (26-34); Mean Corpuscular Volume 96.8 fl (80-100); Mean Platelet Volume 10.6 fl (7.4-10.4); Monocytes Percent Auto 7.9 % (2.6-8.5); Neutrophils Absolute Auto 9.3 K/mm3 (1.3-6.7); Neutrophils Percent Auto 75.7 % (45.5-73.1); Platelet Count Result 265 k/mm3 (150-375); Red Blood Count 3.79 M/mm3 (4.2-5.4); Red Cell Distribution Width 13.2 % (11.5-14.5); White Blood Count 12.3 K/mm3 (4.5-10.0)
[2024-03-12 09:49] VITALS: BP 120/62; PULSE 68; RESP 16; TEMP 36; O2SAT 100
--- NOTE | 2024-03-12 10:25 | WPDANESPN ---
Anes - Prog Note Post-Op Date/Time: 03/12/24 10:25 Cardiovascular status: normal Respiratory status: normal Airway patency: baseline Mental status: baseline Post-Op hydration status: normal Vital Signs: Last Vital Signs Temp 36.0 C L 03/12/24 09:49 Pulse 68 03/12/24 09:49 Resp 16 03/12/24 09:49 BP 120/62 03/12/24 09:49 Pulse Ox 100 03/12/24 09:49 O2 Del Method Room Air 03/12/24 07:50 O2 Flow Rate 2 03/11/24 15:55 Pain Score (VAS): 08/12 I/O: Intake & Output 03/11/24 03/12/24 03/12/24 23:59 07:59 15:59 Intake Total 690 600 358 Balance 690 600 358 Laboratory Tests 03/12/24 07:41 03/12/24 07:41 03/11/24 03/11/24 03/11/24 10:12 10:51 15:11 WBC RBC Hgb Hct MCV MCH MCHC RDW Plt Count MPV Immature Gran % (Auto) Neut % (Auto) Lymph % (Auto) [place] % (Auto) Eos % (Auto) Baso % (Auto) Lymph # (Auto) [place] # (Auto) Eos # (Auto) Baso # (Auto) Abs Immat Gran (auto) Absolute Neuts (auto) Absolute Nucleated RBC Nucleated RBC % Sodium Potassium Chloride Carbon Dioxide Anion Gap BUN Creatinine Estim Creat Clear Calc Estimated GFR Glucose POC Capillary Glucose 88 106 H Calcium Blood Type A Positive Antibody Screen Negative 03/12/24 07:41 WBC 12.3 H RBC 3.79 L Hgb 11.9 L Hct 36.7 L MCV 96.8 MCH 31.4 MCHC 32.4 RDW 13.2 Plt Count 265 MPV 10.6 H Immature Gran % (Auto) 0.4 Neut % (Auto) 75.7 H Lymph % (Auto) 15.3 L [place] % (Auto) 7.9 Eos % (Auto) 0.2 Baso % (Auto) 0.5 Lymph # (Auto) 1.88 [place] # (Auto) 1.0 H Eos # (Auto) 0.0 Baso # (Auto) 0.1 Abs Immat Gran (auto) 0.05 H Absolute Neuts (auto) 9.3 H Absolute Nucleated RBC 0.000 Nucleated RBC % 0.0 Sodium 136 L Potassium 4.1 Chloride 100 Carbon Dioxide 31 H Anion Gap 5 BUN 19 H Creatinine 0.90 Estim Creat Clear Calc 55 Estimated GFR > 60 Glucose 114 H POC Capillary Glucose Calcium 8.6 Blood Type Antibody Screen Post-procedural complaints: pruritis Patient Feedback: Patient satisfied with anesthetic care.
--- NOTE | 2024-03-12 13:22 | PM.DS ---
DS: Admitting Diagnosis Discharge Date 03/12/24 Admitting Diagnosis Knee arthritis DS: Discharge Diagnosis Discharge Diagnosis (1) Status post total left knee replacement: Code(s): Z96.652 - Presence of left artificial knee joint Status: Acute Assessment and Plan: Postop day 1: Left total knee arthroplasty. Patient tolerated procedure well. No complications. Pain manageable with pain medication. No numbness or tingling. We had a lengthy discussion regarding postoperative wound care, limitations, expectations, and exercises. Patient shows good understanding. He has had initial physical therapy and is tolerating it well. DVT prophylaxis: 81 mg baby aspirin b.i.d. for 14 days. Pain medication: Percocet. Prednisone. Meloxicam. Patient has followup appointment with Dr. Flores in 3 weeks. DS: Summary Hospital Course Reason for hospitalization: Total knee arthroplasty Hospital Course: Patient tolerated procedure well. Has had initial PT/OT. Status at Discharge Functional status at discharge: uses cane/walker Overall status at discharge: patient is progressing back to baseline Time Spent with Patient Time attestation: Total time spent providing and/or coordinating discharge services: Exam Narrative: Obese 68 y/o female. Resting comfortably in bed. Complains of thigh pain. Pain to the touch. Wearing compression socks bilaterally. Dressing intact with no drainage. Mild swelling. No ecchymosis. No erythema. No hematoma. Range of motion limited due to pain. Calf nontender. Neurologic status intact. No varicosities. Distal pulses palpable. DS: Data Data Completed and Pending Labs on day of discharge: Labs from last 24 hours 03/12/24 03/11/24 07:41 15:11 WBC 12.3 H RBC 3.79 L Hgb 11.9 L Hct 36.7 L MCV 96.8 MCH 31.4 MCHC 32.4 RDW 13.2 Plt Count 265 MPV 10.6 H Immature Gran % (Auto) 0.4 Neut % (Auto) 75.7 H Lymph % (Auto) 15.3 L [place] % (Auto) 7.9 Eos % (Auto) 0.2 Baso % (Auto) 0.5 Lymph # (Auto) 1.88 [place] # (Auto) 1.0 H Eos # (Auto) 0.0 Baso # (Auto) 0.1 Abs Immat Gran (auto) 0.05 H Absolute Neuts (auto) 9.3 H Absolute Nucleated RBC 0.000 Nucleated RBC % 0.0 Sodium 136 L Potassium 4.1 Chloride 100 Carbon Dioxide 31 H Anion Gap 5 BUN 19 H Creatinine 0.90 Estim Creat Clear Calc 55 Estimated GFR > 60 Glucose 114 H POC Capillary Glucose 106 H Calcium 8.6 Discharge Plan Discharge Patient Disposition: Home, Self-Care Discharge Instructions: See green instruction sheets Stand Alone Forms: General Discharge Instructions Follow-up/Referrals: Cami Woods PA [Physician Senior Automation Engineer] - Discharge Medications: New meloxicam 15 mg tablet 15 mg PO DAILY Qty: 30 0RF Rx Instructions: Cut in half. Take 1/2 in morning and 1/2 at night. Take with food. Stop if stomach upset. prednisone 5 mg tablet 5 mg PO DAILY 21 Days Qty: 21 0RF aspirin 81 mg tablet,delayed release (DR/EC) 81 mg PO BID 14 Days Qty: 28 0RF oxycodone-acetaminophen 5-325 mg tablet 1 - 2 tablet PO Q4-6H PRN (Reason: pain) 7 Days Qty: 30 0RF Continued lisinopril 40 mg tablet 40 mg PO DAILY Qty: 90 3RF Patient Comments: QAM Rx Instructions: LAST REFILL UNTIL SEEN ropinirole 0.5 mg tablet 2.5 mg PO HS Qty: 450 3RF multivitamin Tablet 1 tablet PO DAILY fexofenadine 180 mg Tablet 180 mg PO HS PRN (Reason: Sinus Symptoms) potassium 99 mg Tablet 198 mg PO QAM magnesium 200 mg Tablet 400 mg PO DAILY cinnamon bark [Cinnamon] 500 mg Capsule 2,000 mg PO DAILY cholecalciferol (vitamin D3) 50 mcg (2,000 unit) Capsule 50 mcg PO DAILY ascorbic acid (vitamin C) 500 mg Capsule 1,000 mg PO DAILY hydrochlorothiazide 25 mg tablet 25 mg PO DAILY Qty: 90 0RF Patient Comments: QAM Rx Instructions:
== END 2024-03-12 11:50 | disposition home or self-care (01) ==
LOC: ANHSURGERY 11:36 → ANH3MEDSUR 16:10
PROVIDERS: Physician Assistant Surgical; PCP Nurse Practitioner Family; Visit Provider Orthopaedic Surgery
PROC: (CPT 27447; principal; 2024-03-11 12:00)
DX: M17.12 Unilateral primary osteoarthritis, left knee (principal); M25.762 Osteophyte, left knee; I10 Essential (primary) hypertension; E11.9 Type 2 diabetes mellitus without complications; F32.A Depression, unspecified; E78.5 Hyperlipidemia, unspecified; M47.896 Other spondylosis, lumbar region; G25.81 Restless legs syndrome; M48.00 Spinal stenosis, site unspecified; E66.9 Obesity, unspecified; Z68.37 Body mass index [BMI] 37.0-37.9, adult; Z79.1 Long term (current) use of non-steroidal anti-inflammatories (NSAID); Z98.890 Other specified postprocedural states; Z80.42 Family history of malignant neoplasm of prostate; Z82.49 Family history of ischemic heart disease and other diseases of the circulatory system
CPT/HCPCS: 27447; 36415; 73560; 80048; 82948; 85025; 86850; 86900; 86901; 97110; 97161; 97165; C1776; A9270; C1713; J0171; J0690; J1100; J1171; J1200; J1885; J2003; J2270; J2405; J2704; J2795; J3010; J7030; J7120; J7512

== ENCOUNTER 2024-04-16 07:29 | Outpatient (CLI) | payer MEDICARE, SELFPAY ==
--- NOTE | ~2024-04-16 | MM_ITS ---
EXAMINATION: MM screening sheryl BI w anuradha HISTORY: Screening mammogram TECHNIQUE: Craniocaudal and mediolateral oblique 3-D tomosynthesis images were obtained and synthetic 2-D images were generated. CAD analysis was submitted and interpreted. COMPARISON: 01/06/2020, 11/23/2016 BREAST PARENCHYMAL COMPOSITION:Not Dense. There are scattered areas of fibroglandular density. FINDINGS: No suspicious mass, calcification, or architectural distortion are identified in either lizzie ast to suggest malignancy. There has been no suspicious interval change. IMPRESSION: No mammographic evidence of malignancy. Recommend routine screening mammography in one year. BI-RADS Category 1: Negative Reviewed, dictated and finalized at location . BURSEMENT LIAISON
--- NOTE | ~2024-04-16 | DEXA_ITS ---
Bone Density Report Name: BRANDI STRANGE Age: 69 Sex: Female Ethnicity: White Date of : 1955 Indication: postmenopausal; screening for osteoporosis; height loss; Referring Provider: FLACO HENDERSON Study: Bone densitometry was performed. Exam Date: April 16, 2024 Accession number: [id number] Bone Density: Region BMD T-score Z-score Classification AP Spine(L1-L4) 1.007 -0.4 1.5 Normal Femoral Neck (Left) 0.770 -0.7 0.9 Normal Total Hip (Left) 1.063 1.0 2.3 Normal Femoral Neck (Right) 0.773 -0.7 0.9 Normal Total Hip (Right) 1.079 1.1 2.5 Normal Total Hip Mean 1.071 1.1 2.4 Normal World Health Organization criteria for BMD impression classify patients as: Normal (T-score at or above -1.0), Osteopenia (T-score between -1.0 and -2.5), or Osteoporosis (T-score at or below -2.5). 10-year Fracture Risk: FRAX not reported because: All T-scores for Spine Total, Hip Total, Femoral Neck at or above -1.0 Clinical Information Provided by Patient: Patient maximum height was 62 Menopause Age: 52 No regular weight bearing exercise Drinks caffeinated beverages Onset of menses at age 16 Number of children 2 Impression: The patient has normal bone mass. Discussion: BONE DENSITY IS ABOVE THE MINIMUM DESIRABLE LEVEL AT ALL SKELETAL SITES TESTED. This patient?s bone mineral density is above the minimum desirable level (T-score -1.0 or better) at all sites measured. The patient should follow a healthful lifestyle (good nutrition with adequate calcium and vitamin D, and appropriate weight-bearing exercise). Follow-Up: Consider repeating this study in 5 years or sooner if there is some new clinical indication. Reported by: LEIGH on 04/16/2024 8:13:00 AM. Reviewed, dictated and finalized at location [facility]
== END 2024-04-16 07:30 | disposition home or self-care (01) ==
LOC: ANHIMG 07:30
PROVIDERS: PCP Nurse Practitioner Family; Visit Provider Nurse Practitioner Family
DX: Z12.31 Encounter for screening mammogram for malignant neoplasm of breast (principal); Z78.0 Asymptomatic menopausal state; Z13.820 Encounter for screening for osteoporosis
CPT/HCPCS: 77063; 77067; 77080

== ENCOUNTER 2024-07-11 11:09 | Outpatient (CLI) | payer MEDICARE, SELFPAY ==
--- NOTE | ~2024-07-11 | XR_ITS ---
Left Knee Technique: AP, lateral, and sunrise views were obtained. Clinical History: Arthroplasty Findings: No fracture or dislocation is seen. Left knee arthroplasty in place. No hardware complicati on is evident. Soft tissues are unremarkable. No joint effusion is seen. Impression: No acute abnormality. Left knee arthroplasty in place. Reviewed, dictated and finalized at location . CLAIMS ADJUSTER Impression: No acute abnormality. Left knee arthroplasty in place.
--- NOTE | ~2024-07-11 | US_ITS ---
EXAMINATION: US venous doppler [facility] DATE: 07/11/2024 12:10 INDICATION: Left lower limb pain and swelling TECHNIQUE: Grayscale ultrasound images without and with compression and Doppler ultrasound images of the left lower extremity veins were obtained. COMPARISON: None. FINDINGS: The visualized portions of left common femoral vein, profunda (deep) femoral vein, femoral vein, popl iteal vein, peroneal veins, posterior tibial veins, gastrocnemius vein and greater saphenous vein out flow are patent. IMPRESSION: 1. No deep venous thrombosis in the left lower limb. Reviewed, dictated and finalized at location A. 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
--- OUTSIDE RECORDS SUMMARY | 2024-07-11 11:36 | XMS_ITS | Clinical Summary ---
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, [address] [place] [address] Duc Vasquez MD [address] [place] [address] Health Maintenance Due Date Last Done Comments Colorectal Cancer Screening Colonoscopy (10 Years) 1955 Hepatitis C 1975 DTaP, Tdap and Td Vaccines ( 1 - Tdap) 1976 Mammogram Screening 1997 Zoster Vaccines (1 of 2) 2007 Annual Medicare Wellness Visit 2022 Dexa Scan (General) 2022 Pneumococcal Vaccine: 65+ Ye ars (1 of 1 - PCV) 2022 COVID-19 Vaccine ( - 2023-2 5 season) 2024 Influenza Adult (#1) 2024 RSV Immunization or 60+ Years (1 - 1-dose 75+ series) 2032 Meningococcal B Vaccine Aged Out No l onger eligible based on patient's age to complete this topic Meningococcal Vaccine Aged Out No german bhavin eligible based on patient's age to complete this topic RSV Immunizations Under 20 Months Aged Out No longer eligible based on patient's age to complete this topic Insurance MEDICARE [facility]
--- OUTSIDE RECORDS SUMMARY | 2024-07-11 11:36 | XMS_ITS | Continuity of Care Document ---
Author Organization [facility] Address [address] [place] [address] Phone Care Team Providers Care Supervisor Personnel Clerks Name Role Phone Byron Siddiqui MD Unavailable Unavailable Allergies, Adverse Reactions, Alerts Substance Reaction Status Criticality Sulfa (Sulfonamide Antibiotics) Active No Information Procedures Procedure Date X-ray exam shoulder minimun 2 views Independent Medical Examination NANCIE Prolonged serv, w/o contact, 1st hr Medical Record Copy Medical Record Copy Per Page Affidavit Special Narrative Report Office/outpatient visit,est, mod 2009 Supplemental Report Office/outpatient visit,est, mod 2009 Supplemental Report Office consultation, moderate 0 Drain/inject major jointor bursa 2009 Depo Medrol Methylprednisolone 40 MG inj X-ray exam of shoulder, complete 2009 Office/outpatient visit,est, mod 2009 Office/outpatient visit,est, mod 2009 Drain/inject major jointor bursa 2009 Triamcinolone acetonide inj Office/outpatient visit,est, mod 2009 Office/outpatient visit,new, mod 2009 X-ray exam of knee, 3 views X-ray exam of both knees, standing Advance Directives Directive Yes / No Effective Date File Name Resuscitation Not Answered N/A N/A Life Support Not Answered N/A N/A Intubation Not Answered N/A N/A Antibiotics Not Answered N/A N/A IV Fluid Support Not Answered N/A N/A Tube Feed Not Answered N/A N/A Other Directive N/A N/A WARNING:The information contained in this section is historical and is provided for information only and does not constitute a legal document or any assurance that the information is still accurate. Please verify the information with the amaral of the legal document before using it for clinical purposes. Encounters Encounter Description Practice Location Reason(s) For Visit Diagnoses Date Provider Providers Copied on Encounter Independent Medical Examination [facility], [address] [place] [address], [address] [place] [address], tel:[phone] [facility] [employer] [facility] 3 Chen Matthews. [address] [place] [address], [address] [place] [address], . tel:[phone] [facility], [address] [place] [address], [id number], tel:[phone] [facility] [employer] No Information 0 Administrative Provider. [address] [place] [address], [id number], [place]. tel:[phone] [facility], [address] [place] [address], [id number], tel:[phone] [facility] No Information 0 Chen Matthews. [address] [place] [address], [id number], [place]. tel:[phone] Office/outpa tient visit,est, mod [facility], [address] [place] [address], [id number], tel:[phone] [facility] No Information 0 Chen Matthews. [address] [place] [address], [id number], . tel:[phone] Office/outpa tient visit,est, [facility], [address] [address], [place], [place], [id number], [place] tel:[phone] [facility] [employer] No Information 0 Chen Matthews. [address] [facility], [facility], [place], [place], [id number], [place]. tel:[phone] Office consultation , [facility], [address] [address], [place], [place], [id number], [place] tel:[phone] [facility] [employer] No Information 0 Chen Matthews. [address] [facility], [address] [address], [place], [place], [id number], [place]. tel:[phone] Office/outpa tient visit,[facility], [facility], [address], [id number], [place] tel:[phone] [facility] [employer] No Information 0 No Information Office/outpa tient visit,est, [facility], [address] [address], [place], [place], [id number], [place] tel:[phone] [facility] [employer] No Information 0 No Information Office/outpa tient visit,[facility], [facility], [address], [id number], [place] tel:[phone] [facility] [employer] No Information 0 No Information Office/outpa tient visit,new, [facility], [address], [id number], [place] tel:[phone] [facility] [employer] No Information 0 No Information Family History Family Member Type Diagnosis Age At Onset No Information Payers Payer name Insurance type Covered libertarian ID Felipa velasquez(sDamian [facility] [id number] Social History Type Description Quantity Date Captured Comments Alcohol Use Details Unknown Caffeine Use Details Unknown Tobacco Use Status No Information Smoking Status Never smoker Non-Smoking Tobacco Use Details : No Details Available : No Details Available Sex Female Vital Signs Date / Time: Height Weight BMI Pulse Rate Blood Pressure Temperature Respiratory Rate Body Surface Area Head Circumference Head Circ. Percentile Wt./Osmin. Percentile BMI percentile Pulse Ox Inhaled Ox 2:33 PM 62.00 in 88.451 kg (195.00 lbs) 35.6 7 kg/m eter (2) 156/92 mm[Hg] Chief Complaint And Reason For Visit No Information Reason For Referral Reason For Referral No Information Plan Of Treatment Date Type Action Status Referral Ordered: X-ray exam shoulder minimun 2 views RT ordered History Of Present Illness Encounter Date Complaint History Of Prese nt Illness No Information Functional Status Date Functional Assessmen t No Information Instructions Date Instruction Additional Infor mation No Information Assessments Type Assessment Date No Information Patient Care Teams Name Effective Dates (start - stop) Status Members No Information
== END 2024-07-11 11:10 | disposition home or self-care (01) ==
PROVIDERS: PCP Nurse Practitioner Family; Visit Provider Orthopaedic Surgery
DX: M79.662 Pain in left lower leg (principal); Z96.652 Presence of left artificial knee joint; R60.0 Localized edema
CPT/HCPCS: 73562; 93971